=== PATIENT | male | born 1985 | race Two or more races ===

== ENCOUNTER 2018-03-23 11:43 | Emergency (ER) | payer OTHER ==
[~2018-03-23] VITALS: Ht 165.1 cm; Wt 150.1 kg
[2018-03-23 11:53] VITALS: BP 146/86; Ht 165.1 cm; Wt 150.1 kg
== END 2018-03-23 12:49 | disposition left against medical advice (07) ==
LOC: ED 11:43
DX: Z53.21 Procedure and treatment not carried out due to patient leaving prior to being seen by health care provider (principal)